=== PATIENT | female | born 1990 | race Caucasian/White ===

== ENCOUNTER → 2018-09-25 | Outpatient (CLI) | payer BC, OTHER ==
[~2018-09-25] MED LIST: DOCU-131 PO; IBUP200T49 PO; None per pt; OXYC-302 PO; PREN1TAB27 PO
== END | disposition home or self-care (01) ==
LOC: STAR 08:03
PROVIDERS: ATTEND Student in an Organized Health Care Education/Training Program
DX: Z02.9 Encounter for administrative examinations, unspecified (principal)

== ENCOUNTER 2018-10-03 05:34 | Day surgery (SDC) | payer BC, OTHER ==
[~2018-10-03] VITALS: Ht 167.6 cm; Wt 94.1 kg
[2018-10-03 06:10] VITALS: BP 122/81
[2018-10-03] MEDS ORDERED: LACTATED RINGERS 1,000 ML IV SCH (06:14)
[2018-10-03] MEDS ORDERED: BUPIVACAINE/PF 0.25% ONE (06:50)
[2018-10-03] MEDS ORDERED: ONDANSETRON ODT 8 MG ONE (07:09)
[2018-10-03] MEDS ORDERED: GABAPENTIN 300 MG CAPSULE ONE (07:09)
[2018-10-03] MEDS ORDERED: DIAZEPAM 5 MG TABLET ONE (07:10)
[2018-10-03] MEDS ORDERED: SCOPOLAMINE PATCH, 1.5MG PATCH.TD72 TD ONE ×2 (07:10→07:30)
[2018-10-03] MEDS ORDERED: ACETAMINOPHEN 500 MG TABLET ONE (07:10)
[2018-10-03] MEDS ORDERED: MIDAZOLAM 1 MG/ML, 2ML ONE (07:20)
[2018-10-03] MEDS ORDERED: FENTANYL PF 100 MCG/2ML ONE (07:20)
[2018-10-03] MEDS ORDERED: ONDANSETRON ODT 8 MG PO ONE (07:30)
[2018-10-03] MEDS ORDERED: GABAPENTIN 300 MG CAPSULE PO ONE (07:30)
[2018-10-03] MEDS ORDERED: DIAZEPAM 5 MG TABLET PO ONE (07:30)
[2018-10-03] MEDS ORDERED: ACETAMINOPHEN 500 MG TABLET PO ONE (07:30)
[2018-10-03] MEDS ORDERED: NEOSTIGMINE 1 MG/ML, 10ML ONE ×2 (07:31→08:00)
[2018-10-03] MEDS ORDERED: KETOROLAC 30 MG/1 ML ONE (07:31)
[2018-10-03] MEDS ORDERED: MIDAZOLAM 1 MG/ML, 2ML IV PRN (08:00)
[2018-10-03] MEDS ORDERED: hydrALAzine 20 MG/ML, 1ML IV PRN (08:00)
[2018-10-03] MEDS ORDERED: DEXAMETHASONE 4 MG/ML, 1ML ONE (08:00)
[2018-10-03] MEDS ORDERED: PROMETHAZINE 25 MG/ML, 1ML IV PRN (08:00)
[2018-10-03] MEDS ORDERED: ALBUTEROL/IPRATROPIUM 2.5MG/0.5MG, 3 ML NPPB PRN (08:00)
[2018-10-03] MEDS ORDERED: GLYCOPYRROLATE 0.2MG/1ML, 5ML ONE (08:00)
[2018-10-03] MEDS ORDERED: OXYcodone 5 MG/5 ML ORAL.SOL UDC PO PRN (08:00)
[2018-10-03] MEDS ORDERED: MEPERIDINE/PF 25MG/0.5ML IVPush PRN (08:00)
[2018-10-03] MEDS ORDERED: FENTANYL PF 100 MCG/2ML IV PRN (08:00)
[2018-10-03] MEDS ORDERED: ROCURONIUM 10MG/ML,5ML ONE (08:00)
[2018-10-03] MEDS ORDERED: PROPOFOL 10 MG/ML, 20ML ONE (08:00)
[2018-10-03] MEDS ORDERED: EPHEDRINE 50 MG/ML, 1ML IM PRN (08:00)
[2018-10-03] MEDS ORDERED: HYDROmorphone 2 MG/ML, 1ML IVPush PRN (08:00)
[2018-10-03] MEDS ORDERED: SUCCINYLCHOLINE 20 MG/ML, 10ML ONE (08:00)
[2018-10-03] MEDS ORDERED: ONDANSETRON 2MG/ML, 2ML IV PRN (08:00)
[2018-10-03] MEDS ORDERED: LIDOCAINE-MPF 2% ,5ML ONE (08:00)
[2018-10-03] MEDS ORDERED: CEFAZOLIN 1,000 MG ONE (08:00)
[2018-10-03] MEDS ORDERED: OXYcodone 5 MG/5 ML ORAL.SOL UDC ONE (08:35)
== END 2018-10-03 10:55 | disposition home or self-care (01) ==
LOC: OUT 05:34
PROVIDERS: ATTEND Student in an Organized Health Care Education/Training Program
DX: Z30.2 Encounter for sterilization (principal); Z86.718 Personal history of other venous thrombosis and embolism; Z98.890 Other specified postprocedural states
CPT/HCPCS: 58670; 81025; 88302; J0330; J0690; J1100; J1885; J2250; J2704; J2710; J3010; J3490; J7120; Q0162